=== PATIENT | male | born 1945 | race Caucasian/White ===

== ENCOUNTER 2016-09-25 08:46 | Emergency (ER) | payer OTHER ==
[~2016-09-25] VITALS: Ht 188 cm; Wt 86.0 kg
[~2016-09-25 08:46] MED LIST: CARD240C6 PO; CENTTAB8 PO; D31000CA PO; DABI150 PO; DONE10TA14 PO; ESTE400C PO; LEVO125T3 PO; LISI-360 PO; PACE100T2 PO; PRED1TAB PO; VIIB40TA PO; VITA250T32 PO
[2016-09-25 08:57] VITALS: BP 137/78; PULSE 64; RESP 16; TEMP 97.6; O2SAT 99
[2016-09-25] MEDS ORDERED: DILT-64 PO (09:11)
[2016-09-25] MEDS ORDERED: DONE10TA7 PO (09:11)
[2016-09-25] MEDS ORDERED: VIIB20TA PO (09:11)
[2016-09-25] MEDS ORDERED: PRED1 PO (09:11)
[2016-09-25] MEDS ORDERED: LEVO125T4 PO (09:11)
[2016-09-25] MEDS ORDERED: PRAD150C PO (09:11)
[2016-09-25] MEDS ORDERED: LISI10TA3 PO (09:11)
[2016-09-25] MEDS ORDERED: AMIO0.1T PO (09:11)
[2016-09-25] MEDS ORDERED: LIDOCAINE 1%/EPINEPHrine 1:100,000 SOLN 20 ML VIAL INFIL ONE (09:15)
--- NOTE | 2016-09-25 09:34 | PD ---
HPI . Laceration Chief Complaint: Laceration/Skin Injury Time Seen by Provider: 09:07 Travel History International Travel<30 days: No Contact w/Intl Traveler<30days: No Traveled to known affect area: No History of Present Illness HPI Patient presents with a laceration to the right eyebrow. Patient reports that he tripped and fell at about 5:30 this morning and struck his head. There was no loss of consciousness. Bleeding is currently controlled. He is on Pradaxa for atrial fibrillation. [id number]: Right eyebrow. TIMIN:30 this morning. CONTEXT: Trip and fall. MODIFYING FACTORS: On Pradaxa. ASSOCIATED SYMPTOMS: No associated symptoms. PFSH Past Medical History Hx Anticoagulant Therapy: Yes Atrial Fibrillation: Yes Anxiety: Yes Cardiovascular Problems: Yes (htn on meds, a-fib) High Cholesterol: Yes Immunizations Current: Yes Thyroid Disease: Yes Social History Alcohol Use: Yes (daily) Tobacco Use: No Substance Use: Yes (alcohol daily) Allergies-Medications (Allergen,Severity, Reaction): Coded Allergies: Morphine (Verified Allergy, Intermediate, rash, 09/25/16) Reported Meds & Prescriptions Reported Meds & Active Scripts Active Reported Prednisone 1 Mg Tab 3 Mg PO DAILY Cardizem CD 240 mg (Diltiazem CD 240 mg) 240 Mg/24 Cap 1 Cap PO DAILY Centrum Adults (Multiple Vitamins W/ Minerals) 1 Tab Tab 1 Tab PO DAILY Vitamin C (Ascorbic Acid) 250 Mg Tab 1,000 Mg PO DAILY Randi-E (Vitamin E) 400 Unit Cap 1,000 Unit PO DAILY D3 (Cholecalciferol) 1,000 Unit Cap 1,000 Unit PO DAILY Pacerone 100 mg (Amiodarone HCl) 100 Mg Tab 1 Tab PO DAILY Lisinopril 10 mg (Lisinopril) 10 Mg Tab 1 Tab PO DAILY Levothyroxine 125 mcg (Levothyroxine Sodium) 125 Mcg Tab 125 Mcg PO DAILY Donepezil 10 Mg Tab 10 Mg PO DAILY Pradaxa 150 Mg Cap (Dabigatran) 150 Mg Cap 150 Mg PO BID Viibryd (Vilazodone) 40 Mg Tab 20 Mg PO DAILY Review of Systems Except as stated in HPI: all other systems reviewed are Neg Eyes: No: Diploplia, Blurred Vision HENT: No: Headaches, Lightheadedness Musculoskeletal: No: Pain (no neck pain) Skin: Positive Other (laceration) Neurologic: No: Syncope, Focal Abnormalities Physical Exam Narrative GENERAL: Awake and alert and in no acute distress. SKIN: Warm and dry. Large laceration in the right eyebrow which is gaping wide open. CARDIOVASCULAR: Regular rate and rhythm. RESPIRATORY: No accessory muscle use. MUSCULOSKELETAL: No obvious deformities. No edema. NEUROLOGICAL: Awake and alert. No obvious cranial nerve deficits. Motor grossly within normal limits. Normal speech. PSYCHIATRIC: Appropriate mood and affect; insight and judgment normal. Data Data Last Documented VS Vital Signs Date Time Temp Pulse Resp B/P Pulse Ox O2 Delivery O2 Flow Rate FiO2 09/25/16 08:57 97.6 64 16 137/78 99 Orders Lidocai-Epi 1%-1:100,000 Inj (Xylocaine- (09/25/16 09:15) MDM Medical Decision Making Medical Screen Exam Complete: Yes Emergency Medical Condition: Yes Differential Diagnosis Differential diagnosis includes but is not limited to skin laceration, muscular laceration, tendon laceration, neurovascular laceration. Narrative Course Patient presents for repair of a right eyebrow laceration. Leading is currently controlled. Procedures Procedure Narrative LACERATION LOCATION: Right eyebrow LENGTH: 4 cm NUMBER OF STITCHES/JUAN FRANCISCO: 3 subcutaneous and 5 skin REPAIR: The area of the laceration was prepped with peroxide and sterilely draped. The laceration was infiltrated with 7 cc of 1% lidocaine with epi. The wound was explored without evidence of foreign body, tendon injury or neurovascular injury. The wound was closed using 3-0 Vicryl and 6-0 Prolene. This was a 2 layer repair. The patient was instructed in wound care. Patient tolerated the procedure well. Diagnosis Primary Impression: Laceration of right eyebrow Qualified Code: S01.111A - Laceration of right eyebrow, initial encounter Patient Instructions: Facial Laceration (ED), General Instructions Additional Instructions: Clean the wound twice daily with soap and water. Apply a thin layer of Neosporin ointment after you wash it. See your doctor in 5 days for suture removal. Seek care sooner for redness, drainage, warmth, unusual pain. Disposition: 01 DISCHARGE HOME Condition: Stable Veronica Figueroa MD Sep 25, 2016 09:34
== END 2016-09-25 09:43 | disposition home or self-care (01) ==
LOC: PHED 08:46
DX: S01.111A Laceration without foreign body of right eyelid and periocular area, initial encounter (principal); I48.91 Unspecified atrial fibrillation; Z79.01 Long term (current) use of anticoagulants; I10 Essential (primary) hypertension; E78.00 Pure hypercholesterolemia, unspecified; E07.9 Disorder of thyroid, unspecified; W18.09XA Striking against other object with subsequent fall, initial encounter; Y99.8 Other external cause status
CPT/HCPCS: 12052